=== PATIENT | male | born 1945 | race Caucasian/White ===

== ENCOUNTER → 2016-04-28 07:54 | Outpatient (CLI) | payer MEDICARE, BC ==
[2013-12-04 13:15] VITALS: BMI 30.9
[~2016-04-28 07:54] MED LIST: ALBUTEROL0.63 MG/3 INH; BAYER CHEWABLE81 MG PO; CRESTOR5 MG PO; HYDROCODONE-APA1 TAB PO; METOPROLOL TART50 MG PO; PLAVIX75 MG PO; PROSCAR5 MG PO; SOMA350 MG PO; SYNTHROID50 MCG PO
[2016-04-29 09:17] LABS: IMMUNOGLOBULIN A 106 mg/dL (61-437); IMMUNOGLOBULIN E <1 IU/mL (0-100); IMMUNOGLOBULIN G 681 mg/dL (700-1600)
== END | disposition home or self-care (01) ==
LOC: D.RT 07:54
PROVIDERS: Internal Medicine Pulmonary Disease
DX: J44.9 Chronic obstructive pulmonary disease, unspecified (principal)

== ENCOUNTER → 2016-05-15 19:37 | Outpatient (CLI) | payer MEDICARE, BC ==
[2013-12-04 13:15] VITALS: BMI 30.9
== END | disposition home or self-care (01) ==
LOC: D.SLEEP 19:37
DX: G47.33 Obstructive sleep apnea (adult) (pediatric) (principal)

== ENCOUNTER 2017-02-21 08:46 | Day surgery (SDC) | payer MEDICARE, BC ==
[~2017-02-21] VITALS: Ht 177.8 cm; Wt 85.3 kg
[~2017-02-21 08:46] MED LIST changes: +BREO ELLIPTA 21 EACH; +FLOMAX0.4 MG PO; +KADIAN60 MG PO; +LEVOTHYROXINE100 MCG PO; +PROTONIX40 MG PO; +PROVENTIL HFA6.7 GM INH; +ROXICODONE15 MG PO; +VALIUM10 MG PO
[2017-02-21 09:52] VITALS: BP 116/62; Ht 177.8 cm; Wt 85.3 kg
[2017-02-21 09:54] LABS: CALC OSMOLALITY 275 mosm/kg (275-300); CALCIUM 8.7 mg/dL (8.5-10.1); CARBON DIOXIDE 25.2 mmol/L (21.0-32.0); CHLORIDE - SERUM 102 mmol/L (98-107); GLUCOSE 112 mg/dL (74-106); POTASSIUM - SERUM 3.3 mmol/L (3.5-5.1); SODIUM 137 mmol/L (136-145); UREA NITROGEN 14 mg/dL (7-18); eGFR NON AFRICAN AMERICAN 78 mL/min (90-120)
[2017-02-21 10:00] LABS: APTT 26.9 SECONDS (22.8-39.4); INR 1.3 (0.85-1.17); PROTIME 15.8 SECONDS (11.6-15.0)
[2017-02-21 10:42] LABS: BASOPHILS 0.2 % (0-2); EOSINOPHILS 2.5 % (0-7); HEMATOCRIT 31.4 % (42.0-54.0); HEMOGLOBIN 10.7 g/dL (13.5-17.5); IMMATURE GRANULOCYTES 0.2 % (0-5); LYMPHOCYTES 18.7 % (15-50); MCH 33.3 pg (26.0-34.0); MCHC 34.1 g/dL (31.0-37.0); MCV 97.8 fL (80.0-100.0); MEAN PLATELET VOLUME 12.3 fL (7.4-10.4); NEUTROPHILS 61.4 % (40-80); RBC 3.21 10x6/uL (4.20-6.10); RDW 15.4 % (11.5-14.5); WBC 5.9 10x3/uL (4.8-10.8)
[2017-02-21 10:46] LABS: PLATELET COUNT 72 10x3/uL (130-400)
--- NOTE | 2017-02-21 12:40 | NUR ---
PT REC'D TO ROOM VIA STRETCHER FROM PACU. AWAKE, ALERT, ORIENTED. DRESSING TO LEFT CHEST C/D/I.
--- NOTE | 2017-02-21 13:10 | NUR ---
PT TOLERATED FULL LIQ DIET.
--- NOTE | 2017-02-21 13:45 | NUR ---
VSS. NO NAUSEA, VOMITING. IV D/C'D CATH INTACT. ASSISTED PT TO DRESS.
--- NOTE | 2017-02-21 14:00 | NUR ---
D/C INSTRUCTIONS EXPLAINED TO PT. VOICED UNDERSTANDING. POWER PACK INFO GIVEN TO PT AND . COPIES OF ALL INSTRUCTIONS GIVEN.
--- NOTE | 2017-02-21 14:10 | NUR ---
D/C'D HOME VIA W/C TO PRIVATE CAR.
--- NOTE | 2017-02-28 15:39 | OP ---
PATIENT NAME: YINA VAUGHN MEDICAL RECORD: [id number] :41 LOCATION:D.OPS ADMISSION DATE: SURGEON: JCARLOS GALAN MD DATE OF OPERATION: 02/21/2017 PREOPERATIVE DIAGNOSES: 1. Gastric cancer. 2. Chronic obstructive pulmonary disease. 3. Asthma. 4. Coronary artery disease. 5. Hypertension. 6. Hypothyroidism. 7. Gastroesophageal reflux disease. 8. Obstructive sleep apnea. 9. Abdominal aortic aneurysm. POSTOPERATIVE DIAGNOSES: 1. Gastric cancer. 2. Chronic obstructive pulmonary disease. 3. Asthma. 4. Coronary artery disease. 5. Hypertension. 6. Hypothyroidism. 7. Gastroesophageal reflux disease. 8. Obstructive sleep apnea. 9. Abdominal aortic aneurysm. PROCEDURE: 1. Left subclavian vein PowerPort placement. 2. Fluoroscopic interpretation. SURGEON: Jcarlos Galan MD REPORT OF PROCEDURE: The patient's left chest was prepped and draped in sterile fashion. A needle was used to cannulate the left subclavian vein. The guidewire was advanced with ease. Fluoroscopy was used to note that the wire was in good position in the venous system. A skin incision was made on the left superior lateral chest and a subcutaneous pouch was made over the pectoral fascia. The catheter was tunneled between this pouch and the wire exit site and the port was then sutured to the pectoral fascia using interrupted 2-0 Prolene. The catheter was cut with a beveled tip at 25 cm. The dilator trocar device was placed over the wire and the wire and dilator were removed. The catheter tip was advanced through the trocar and the trocar was removed. The catheter tip rested in good position in the right atrial superior vena caval junction. The catheter aspirated nonpulsatile dark blood and flushed easily with heparinized saline. The subcutaneous tissues were reapproximated with interrupted 3-0 Vicryl and the skin was closed with running subcutaneous 5-0 Monocryl. Dressings were then applied. COMPLICATIONS: None. CONDITION: Stable. ANESTHESIA: General endotracheal. OPERATIVE REPORT [id number] YINA VAUGHN BLOOD LOSS: Minimal. 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
== END 2017-02-21 14:10 | disposition home or self-care (01) ==
LOC: D.OPS 08:46 → D.PAN 12:15 → D.OPS 12:15
PROVIDERS: Anesthesiology
DX: C16.9 Malignant neoplasm of stomach, unspecified (principal); J44.9 Chronic obstructive pulmonary disease, unspecified; I25.10 Atherosclerotic heart disease of native coronary artery without angina pectoris; I10 Essential (primary) hypertension; E03.9 Hypothyroidism, unspecified; K21.9 Gastro-esophageal reflux disease without esophagitis; G47.33 Obstructive sleep apnea (adult) (pediatric); I71.4 Abdominal aortic aneurysm, without rupture; Z01.812 Encounter for preprocedural laboratory examination; F17.200 Nicotine dependence, unspecified, uncomplicated

== ENCOUNTER 2017-05-05 17:27 | Inpatient (IN) | payer MEDICARE, BC ==
[~2017-05-05] VITALS: Ht 177.8 cm; Wt 72.7 kg
[2017-05-05 18:49] LABS: BASOPHILS 0.2 % (0-2); EOSINOPHILS 0.5 % (0-7); HEMATOCRIT 29.1 % (42.0-54.0); HEMOGLOBIN 9.4 g/dL (13.5-17.5); IMMATURE GRANULOCYTES 0.2 % (0-5); LYMPHOCYTES 13.8 % (15-50); MCH 36.2 pg (26.0-34.0); MCHC 32.3 g/dL (31.0-37.0); MCV 111.9 fL (80.0-100.0); MONOCYTES 19.2 % (2-11); NEUTROPHILS 66.1 % (40-80); RDW 16.6 % (11.5-14.5)
[2017-05-05 18:52] LABS: MEAN PLATELET VOLUME 11.6 fL (7.4-10.4); PLATELET COUNT 51 10x3/uL (130-400)
[2017-05-05 19:05] LABS: INR 1.05 (0.85-1.17); PROTIME 13.3 SECONDS (11.6-15.0)
[2017-05-05 19:12] LABS: PLATELET ESTIMATE DECREASED
[2017-05-05 19:17] LABS: ALBUMIN 2.3 g/dL (3.4-5.0); ALKALINE PHOSPHATASE 143 U/L (46-116); ALT (SGPT) 18 U/L (10-68); BILIRUBIN - TOTAL 0.37 mg/dL (0.2-1.3); CALC OSMOLALITY 274 mosm/kg (275-300); CALCIUM 8.4 mg/dL (8.5-10.1); CARBON DIOXIDE 29.7 mmol/L (21.0-32.0); CHLORIDE - SERUM 101 mmol/L (98-107); CREATININE - SERUM 0.8 mg/dL (0.6-1.3); GLUCOSE 131 mg/dL (74-106); POTASSIUM - SERUM 3.6 mmol/L (3.5-5.1); PROTEIN - SERUM 5.8 g/dL (6.4-8.2); SODIUM 136 mmol/L (136-145); UREA NITROGEN 16 mg/dL (7-18); eGFR NON AFRICAN AMERICAN > 90 mL/min (90-120)
[2017-05-05 19:46] LABS: APPEARANCE CLEAR (CLEAR); BILIRUBIN NEGATIVE (NEGATIVE); COLOR DK YELLOW (YELLOW); GLUCOSE NEGATIVE (NEGATIVE); KETONE NEGATIVE (NEGATIVE); NITRITE NEGATIVE (NEGATIVE); PROTEIN NEGATIVE (NEGATIVE); SPECIFIC GRAVITY 1.015 (1.005-1.020); UROBILINOGEN NORMAL (NORMAL)
[2017-05-05 19:47] LABS: BACTERIA FEW /hpf (NONE SEEN); RED CELLS - URINE OCC /hpf (0-5); WHITE CELLS - URINE OCC /hpf (0-5)
[2017-05-05] MEDS ORDERED: FLUTICASONE PRO16 GM NASAL (22:35)
[2017-05-05] MEDS ORDERED: MUCINEX600 MG PO (22:37)
[2017-05-05] MEDS ORDERED: MIRALAX17 GM PO (22:37)
[2017-05-05] MEDS ORDERED: NITROSTAT0.3 MG SL (22:37)
[2017-05-05] MEDS ORDERED: [UNRECOGNIZED DRUG - OTHER] PO (22:38)
[2017-05-05 22:41] VITALS: BP 89/50
[2017-05-05 23:21] VITALS: BP 89/50; BMI 23.5
[2017-05-06 05:10] VITALS: BP 101/55
[2017-05-06 08:16] VITALS: BP 116/77
[2017-05-06 14:06] VITALS: Ht 177.8 cm; Wt 72.7 kg
[2017-05-06 14:50] LABS: APPEARANCE SLT CLOUDY (CLEAR); BILIRUBIN NEGATIVE (NEGATIVE); COLOR DK YELLOW (YELLOW); GLUCOSE NEGATIVE (NEGATIVE); KETONE NEGATIVE (NEGATIVE); NITRITE NEGATIVE (NEGATIVE); PROTEIN NEGATIVE (NEGATIVE); UROBILINOGEN NORMAL (NORMAL)
[2017-05-06 15:33] VITALS: BP 128/63
[2017-05-06 22:15] VITALS: BP 157/84
[2017-05-07 01:30] VITALS: BP 127/82
[2017-05-07 03:58] LABS: BASOPHILS 0.2 % (0-2); EOSINOPHILS 0.5 % (0-7); HEMATOCRIT 26.1 % (42.0-54.0); HEMOGLOBIN 8.2 g/dL (13.5-17.5); IMMATURE GRANULOCYTES 0.2 % (0-5); LYMPHOCYTES 17.9 % (15-50); MCH 35.8 pg (26.0-34.0); MCHC 31.4 g/dL (31.0-37.0); MEAN PLATELET VOLUME 12.8 fL (7.4-10.4); MONOCYTES 20.4 % (2-11); NEUTROPHILS 60.8 % (40-80); PLATELET COUNT 52 10x3/uL (130-400); RBC 2.29 10x6/uL (4.20-6.10); RDW 16.6 % (11.5-14.5); WBC 5.6 10x3/uL (4.8-10.8)
[2017-05-07 04:15] LABS: ALBUMIN 1.9 g/dL (3.4-5.0); ALKALINE PHOSPHATASE 126 U/L (46-116); BILIRUBIN - TOTAL 0.32 mg/dL (0.2-1.3); CARBON DIOXIDE 30.1 mmol/L (21.0-32.0); CHLORIDE - SERUM 102 mmol/L (98-107); CREATININE - SERUM 0.7 mg/dL (0.6-1.3); GLUCOSE 113 mg/dL (74-106); POTASSIUM - SERUM 3.7 mmol/L (3.5-5.1); SODIUM 138 mmol/L (136-145); eGFR NON AFRICAN AMERICAN > 90 mL/min (90-120)
[2017-05-07 04:20] LABS: ALT (SGPT) 13 U/L (10-68); CALC OSMOLALITY 275 mosm/kg (275-300); UREA NITROGEN 10 mg/dL (7-18)
[2017-05-07 06:20] VITALS: BP 89/53
[2017-05-07 08:33] VITALS: BP 145/75
== END 2017-05-07 10:34 | disposition home health service (06) | DRG 70 ==
LOC: D.ER 17:27 → D.M2 20:51 → D.EDHOLD 20:51 → D.M2 21:40
PROVIDERS: Emergency Medicine; Internal Medicine Hematology & Oncology; Nurse Practitioner Family
DX: G93.41 Metabolic encephalopathy (principal); D61.810 Antineoplastic chemotherapy induced pancytopenia; C25.9 Malignant neoplasm of pancreas, unspecified; I10 Essential (primary) hypertension; J44.9 Chronic obstructive pulmonary disease, unspecified; K21.9 Gastro-esophageal reflux disease without esophagitis; Z72.0 Tobacco use; Z66 Do not resuscitate; W19.XXXA Unspecified fall, initial encounter; R41.0 Disorientation, unspecified